=== PATIENT | female | born 1965 | race Caucasian/White ===

== ENCOUNTER → 2019-10-13 11:54 | Outpatient (CLI) | payer OTHER, SELFPAY ==
--- NOTE | ~2019-10-13 | XR_ITS ---
EXAMINATION: XR lumbar spine 2-3V DATE: 10/13/2019 13:04 INDICATION: Polyarthralgia TECHNIQUE: Anteroposterior and lateral views of the lumbar spine, and cone-down lateral view of the l umbosacral junction were obtained. COMPARISON: None. FINDINGS: There are 3 mm of anterolisthesis of L4 on L5. Vertebral body heights are maintained. There is mild loss of intervertebral disc space height throughout the lumbar spine. Moderate facet osteoar thritis is noted at L5-S1. There is no fracture. Small degenerative osteophytes project from the ante rior endplates of multiple vertebral bodies. IMPRESSION: 1. Mild lumbar spondylosis without acute findings. Reviewed, dictated and finalized at location A.
--- NOTE | ~2019-10-13 | XR_ITS ---
EXAMINATION: XR knee RT 3V EXAM DATE: 10/13/2019 13:04 INDICATION: No known recent injury provided at this time. Pain of the right knee. TECHNIQUE: Three projections of the right knee. Correlation is made to contralateral knee same date. FINDINGS: No evidence osteochondral defect or joint body in the right knee joint. There is minimal patellofemoral primary osteoarthritis. Otherwise knee is unremarkable. There are no acute fractures or dislocations identified. There is no subcutaneous gas. The soft tissue is unremarkable. There are no radiopaque foreign bodies. IMPRESSION: Minimal right patellofemoral compartment osteoarthritis. Reviewed, dictated and finalized at location B.
--- NOTE | ~2019-10-13 | XR_ITS ---
EXAMINATION: XR foot RT 2V EXAM DATE: 10/13/2019 13:04 INDICATION: No known recent injury provided at this time. Pain of the TECHNIQUE: Frontal and lateral projections of the right foot. Correlation was made with contralatera l foot. FINDINGS: The right 5th metatarsal head is absent, with a small ossification between it and the prox imal phalanx. Most likely this is postoperative given that the other side has a similar appearance. T here are no bony erosions identified. There is minimal 1st metatarsophalangeal joint primary osteoart hritis. There are no acute fractures or dislocations identified. There is no subcutaneous gas. The soft tissue is unremarkable. There are no radiopaque foreign bodies. IMPRESSION: 1. Minimal right 1st MTP osteoarthritis. 2. Absent 5th metatarsal head probably postoperative given symmetry. Reviewed, dictated and finalized at location B.
--- NOTE | ~2019-10-13 | XR_ITS ---
EXAMINATION: XR shoulder RT min 2V EXAM DATE: 10/13/2019 13:04 INDICATION: No known recent injury provided at this time. Pain of the shoulders. TECHNIQUE: The following right shoulder projections obtained: frontal projection with internal rotati on, frontal projection with external rotation, Grashey, and axillary (4+ views). Correlation is made to contralateral shoulder same date. FINDINGS: No evidence of right shoulder rotator cuff calcific tendinosis. There is minimal acromio clavicular joint primary osteoarthritis. There are no acute fractures or dislocations identified. Th ere is no subcutaneous gas. The soft tissue is unremarkable. There are no radiopaque foreign chucho s. IMPRESSION: Minimal right acromioclavicular joint osteoarthritis. Reviewed, dictated and finalized at location B.
--- NOTE | ~2019-10-13 | XR_ITS ---
EXAMINATION: XR knee LT 3V EXAM DATE: 10/13/2019 13:04 INDICATION: No known recent injury provided at this time. Pain of the polyarthralgia. TECHNIQUE: Three projections of the left knee. There is no prior study for comparison. FINDINGS: No evidence osteochondral defect or joint body in the left knee joint. There are no acute fractures or dislocations identified. There is no subcutaneous gas. The soft tissue is unremarkabl e. There are no radiopaque foreign bodies. Joint space maintained and no bony productive change. IMPRESSION: 1. Unremarkable XR knee LT 3V exam. Reviewed, dictated and finalized at location B.
--- NOTE | ~2019-10-13 | XR_ITS ---
EXAMINATION: XR foot LT 2V EXAM DATE: 10/13/2019 13:04 INDICATION: No known recent injury provided at this time. Pain of the left foot. TECHNIQUE: Frontal and lateral projections of the left foot. There is no prior study for comparison . FINDINGS: The 5th metatarsal head is missing, without arthritic change along the base of the proxima l phalanx. Could be congenital appearance or sequela from old avascular necrosis or surgery. Please c linically correlate. There are no bony erosions identified. There are no acute fractures or dislocati ons identified. There is no subcutaneous gas. The soft tissue is unremarkable. There are no radio paque foreign bodies. There is mild 1st MTP primary osteoarthritis. IMPRESSION: 1. Mild left 1st MTP osteoarthritis. 2. Absent 5th metatarsal head. Reviewed, dictated and finalized at location B.
--- NOTE | ~2019-10-13 | XR_ITS ---
EXAMINATION: XR hand LT 2V EXAM DATE: 10/13/2019 13:04 INDICATION: No known recent injury provided at this time. Pain of the left hand. TECHNIQUE: Frontal and lateral projections of the left hand. Comparison is made to prior examination from 05/21/2017. FINDINGS: There is minimal polyarticular interphalangeal primary osteoarthritis, symmetric to contral ateral side. There are no bony erosions identified. There are no acute fractures or dislocations mirna ntified. There is no subcutaneous gas. The soft tissue is unremarkable. There are no radiopaque f oreign bodies. IMPRESSION: Minimal left interphalangeal polyarticular osteoarthritis. Reviewed, dictated and finalized at location B.
--- NOTE | ~2019-10-13 | XR_ITS ---
EXAMINATION: XR shoulder LT min 2V EXAM DATE: 10/13/2019 13:04 INDICATION: No known recent injury provided at this time. Pain of the left shoulder. TECHNIQUE: The following left shoulder projections obtained: frontal projection with internal rotatio n, frontal projection with external rotation, Grashey, and axillary (4+ views). Correlation is made t o contralateral shoulder same date. FINDINGS: No evidence of left shoulder rotator cuff calcific tendinosis. There is minimal acromiocl avicular joint primary osteoarthritis. There are no acute fractures or dislocations identified. Ther e is no subcutaneous gas. The soft tissue is unremarkable. There are no radiopaque foreign bodies. IMPRESSION: Minimal left acromioclavicular joint osteoarthritis. Reviewed, dictated and finalized at location B.
--- NOTE | ~2019-10-13 | XR_ITS ---
EXAMINATION: XR chest 2V EXAM DATE: 10/13/2019 13:04 INDICATION: Dyspnea. TECHNIQUE: Frontal and lateral projections of the chest obtained and reviewed. There is no prior emanuel dy for comparison. FINDINGS: The lungs are clear. There are no pleural effusions. The cardiomediastinal silhouette is within normal limits. There is no pneumothorax suspected. The bones and soft tissues are unremarkab le. IMPRESSION: No acute cardiopulmonary findings. Reviewed, dictated and finalized at location B.
--- NOTE | ~2019-10-13 | XR_ITS ---
EXAMINATION: XR sacroiliac joints min 3V INDICATION: Polyarthralgia TECHNIQUE: Three views of the sacroiliac joints are obtained COMPARISON: None available FINDINGS: There is no abnormal sclerosis or erosion of the sacroiliac joints. No fracture is identifi ed. Bone island of the left sacrum is noted. There is mild spondylosis of the lower lumbar spine. IMPRESSION: 1. Unremarkable sacroiliac joints. Reviewed, dictated and finalized at location A.
--- NOTE | ~2019-10-13 | XR_ITS ---
EXAMINATION: XR hand RT 2V EXAM DATE: 10/13/2019 13:04 INDICATION: No known recent injury provided at this time. Pain of the right hand. Polyarthralgia. TECHNIQUE: Frontal and lateral projections of the right hand. Comparison is made to prior examinatio n from 05/21/2017. FINDINGS: There is minimal polyarticular right hand primary osteoarthritis. There are no bony erosio ns identified. There are no acute fractures or dislocations identified. There is no subcutaneous gas . The soft tissue is unremarkable. There are no radiopaque foreign bodies. There is no significan t interval change. IMPRESSION: Minimal polyarticular right interphalangeal joint osteoarthritis. Reviewed, dictated and finalized at location B.
== END ==
PROVIDERS: Visit Provider Physician Assistant Medical
DX: M25.50 Pain in unspecified joint (principal); M47.816 Spondylosis without myelopathy or radiculopathy, lumbar region; M19.072 Primary osteoarthritis, left ankle and foot; M19.071 Primary osteoarthritis, right ankle and foot; M17.11 Unilateral primary osteoarthritis, right knee; M19.042 Primary osteoarthritis, left hand; M19.041 Primary osteoarthritis, right hand; M19.012 Primary osteoarthritis, left shoulder; M19.011 Primary osteoarthritis, right shoulder
CPT/HCPCS: 71046; 72100; 72202; 73030; 73120; 73562; 73620

== ENCOUNTER 2022-08-13 21:05 | Emergency (ER) | payer OTHER, SELFPAY ==
--- NOTE | ~2022-08-13 | XR_ITS ---
Right Knee Technique: AP, lateral, and sunrise views were obtained. Clinical History: Pain Findings: No fracture or dislocation is seen. Osseous alignment is anatomic. Minimal patellar spurrin g is noted. Soft tissues are unremarkable. No joint effusion is seen. Impression: No fracture or dislocation. Minimal patellar spurring. Reviewed, dictated and finalized at location . Impression: No fracture or dislocation. Minimal patellar spurring.
--- NOTE | ~2022-08-13 | XR_ITS ---
AP view of the pelvis and AP and lateral views of the bilateral hips Clinical history: Pain Findings: No acute fracture or dislocation is seen. Osseous alignment is anatomic. Bilateral hip and SI joint spaces are preserved. Lumbosacral fixation hardware is present. Soft tissues are unremarkabl e. Impression: No acute abnormality. Lumbosacral spinal fixation hardware. Correlate with surgical history. Reviewed, dictated and finalized at location . Impression: No acute abnormality. Lumbosacral spinal fixation hardware. Correlate with surgical history.
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
--- NOTE | ~2022-08-13 | CT_ITS ---
Noncontrast CT scan of the cervical spine Technique: Multiple contiguous axial [address] images of the cervical spine were obtained and rec onstructed in 2D sagittal and coronal planes on the acquisition scanner. Dose reduction technique was used on this scan by utilizing automated exposure control, adjustment of the mA and/or kV according to patient size. The dose-length product (DLP) was 134.85 mGy-cm. Clinical History: Pain COMPARISON: 06/04/2015 Findings: No acute fractures or dislocations. There is anterior fusion hardware extending from C4 th rough C7, with associated interbody fusion at these levels. C2-C3, C3-C4, and C7-T1 disc spaces are p reserved. No prevertebral soft tissue swelling. Impression: No fracture or subluxation of the cervical spine. Anterior fusion from C4 through C7, as detailed above. Reviewed, dictated and finalized at [facility]. Impression: No fracture or subluxation of the cervical spine. Anterior fusion from C4 through C7, as detailed above.
--- NOTE | ~2022-08-13 | XR_ITS ---
Left Knee Technique: AP, lateral, and oblique views were obtained. Clinical History: Pain Findings: No fracture or dislocation is seen. Osseous alignment is anatomic. Joint spaces are preserv ed without degenerative or erosive change. Soft tissues are unremarkable. No joint effusion is seen. Impression: Unremarkable left knee radiographs. Reviewed, dictated and finalized at location . Impression: Unremarkable left knee radiographs.
[2022-08-13 21:08] VITALS: BP 141/89; PULSE 78; RESP 20; TEMP 36.2; O2SAT 95
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
--- NOTE | 2022-08-13 22:08 | PC.NURSE ---
c-collar applied per Jatin PA orders.
--- NOTE | 2022-08-13 23:01 | PC.NURSE ---
CO=0. Dr. Alvarenga aware.
[2022-08-14] MEDS: ORPHENADRINE CITRATE 100 MG TABLET.ER PO (00:33)
[2022-08-14 02:29] VITALS: PULSE 68; RESP 16; O2SAT 100
== END 2022-08-14 02:39 | disposition home or self-care (01) ==
PROVIDERS: Emergency Provider Physician Assistant; PCP Family Medicine
DX: S13.4XXA Sprain of ligaments of cervical spine, initial encounter (principal); V49.40XA Driver injured in collision with unspecified motor vehicles in traffic accident, initial encounter
CPT/HCPCS: 70450; 72125; 73521; 73562; 99284; A9270; L0140